=== PATIENT | female | born 1985 | race African-American/Black ===

== ENCOUNTER 2016-08-30 20:25 | Emergency (ER) | payer BC ==
[~2016-08-30] VITALS: Ht 175.3 cm; Wt 54.4 kg
[2016-08-30 20:55] VITALS: BP 112/84
[2016-08-30] MEDS ORDERED: VITAMINS (20:55)
[2016-08-30] MEDS ORDERED: IBUPROFEN600 MG ORAL (22:05)
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
[2016-08-30 22:15] VITALS: BP 125/83
--- NOTE | 2016-08-31 11:00 | Diagnostic Imaging Report ---
Indication: TRAUMA, headache Technique: Continuous helical CT scanning of the head was performed without intravenous contrast material. Axial and coronal 5 mm sections were generated. Radiation dose was minimized using automated exposure control Dose: Total Dose Length Product - DLP [address] Dose Index - CTDIvol(s) 70.38 mGy. Comparison: None Findings: The ventricular system is normal in size and configuration. There is no shift of midline structures. No abnormal extra-axial fluid collections are noted. There is no evidence of intracerebral bleeding. No other abnormal high or low density areas are noted within the brain. Impression: Normal CT scan of the head without contrast material. This agrees with the preliminary interpretation provided overnight by Dr. Monroy The CT scanner at [facility] is accredited by the [employer] [place] and the scans are performed using protocols designed to limit radiation exposure to as low as reasonably achievable to attain images of sufficient resolution adequate for diagnostic evaluation.
== END 2016-08-30 22:15 | disposition home or self-care (01) ==
LOC: EMR 21:20
DX: S09.8XXA Other specified injuries of head, initial encounter (principal); S16.1XXA Strain of muscle, fascia and tendon at neck level, initial encounter; V43.52XA Car driver injured in collision with other type car in traffic accident, initial encounter; Y92.414 Local residential or business street as the place of occurrence of the external cause
CPT/HCPCS: 70450; 99284